=== PATIENT | female | born 1960 | race Caucasian/White ===

== ENCOUNTER 2017-04-08 15:09 | Emergency (ER) | payer OTHER ==
[2017-04-08 15:19] VITALS: BP 139/62; PULSE 98; RESP 20; TEMP 97.8
--- NOTE | 2017-04-08 15:35 | ED ---
General Adult HPI - General Chief complaint: Urogenital Stated complaint: UTI Time Seen by Provider: 04/08/17 15:28 Source: patient Mode of arrival: ambulatory Limitations: no limitations - History of Present Illness Initial comments: 57 year-old female patient presents to emergency department today for evaluation of lower abdominal pressure, frequency of urination, and constant urge to urinate. Patient states the symptoms started this morning. Patient denies any dysuria, but states she did have some hematuria once while using the restroom. States she noticed some pink blood on the toilet paper when she wiped. Patient denies any fever, chills, nausea, vomiting, back pain, abdominal pain, constipation, dizziness, or weakness. Patient states that she did have one episode of diarrhea this morning but has not had any further episodes today. Patient denies any history of frequent urinary tract infections. - Related Data Previous Rx's Medication Instructions Recorded Ciprofloxacin HCl [Cipro] 500 mg PO Q12HR #10 tablet 04/08/17 Allergies Allergy/AdvReac Type Severity Reaction Status Date / Time No Known Allergies Allergy Verified 04/08/17 15:18 Review of Systems ROS Statement: Those systems with pertinent positive or pertinent negative responses have been documented in the HPI. ROS Other: All systems not noted in ROS Statement are negative. Past Medical History Past Medical History: No Reported History History of Any Multi-Drug Resistant Organisms: None Reported Past Surgical History: Cholecystectomy, Uterine Ablation Additional Past Surgical History / Comment(s): bladder suspension Past Psychological History: No Psychological Hx Reported Smoking Status: Never smoker Past Alcohol Use History: Occasional Past Drug Use History: None Reported General Exam Limitations: no limitations General appearance: alert, in no apparent distress Head exam: Present: atraumatic, normocephalic, normal inspection Eye exam: Present: normal appearance, PERRL, EOMI. Absent: scleral icterus, conjunctival injection, periorbital swelling ENT exam: Present: normal exam, mucous membranes moist Neck exam: Present: normal inspection. Absent: tenderness, meningismus, lymphadenopathy Respiratory exam: Present: normal lung sounds bilaterally. Absent: respiratory distress, wheezes, rales, rhonchi, stridor Cardiovascular Exam: Present: regular rate, normal rhythm, normal heart sounds. Absent: systolic murmur, diastolic murmur, rubs, gallop, clicks GI/Abdominal exam: Present: soft, tenderness (Mild tenderness in the suprapubic region), normal bowel sounds. Absent: distended, guarding, rebound, rigid Extremities exam: Present: normal inspection, full ROM, normal capillary refill. Absent: tenderness, pedal edema, joint swelling, calf tenderness Back exam: Present: normal inspection. Absent: CVA tenderness (R), CVA tenderness (L) Neurological exam: Present: alert, oriented X3, CN II-XII intact Psychiatric exam: Present: normal affect, normal mood Skin exam: Present: warm, dry, intact, normal color. Absent: rash Course Vital Signs 04/08/17 15:16 Temperature 97.8 F Pulse Rate 98 Respiratory 20 Rate Blood Pressure 139/62 O2 Sat by Pulse 99 Oximetry Medical Decision Making - Medical Decision Making 57-year-old female patient presented to the emergency room today for evaluation of suprapubic pressure and frequency of urination. Urinalysis positive for urinary tract infection. She'll be discharged home with a 5 day course of ciprofloxacin. Patient will be instructed to return for any worsening symptoms including fever, back pain, nausea, or vomiting. Patient also instructed to return if she has any increase in her hematuria. Patient started to follow-up with her primary care physician for a repeat urinalysis once her antibiotic is completed. Urine was sent for culture will contact patient if antibiotic coverage is not appropriate. Patient started to return for any new, worsening, or concerning symptoms. Patient verbalizes understanding and agrees this plan. - Lab Data Lab Results 04/08/17 Range/Units 15:20 Urine Color Light Yellow Urine Appearance Cloudy H (Clear) Urine pH 6.0 (5.0-8.0) Ur Specific [place] 1.005 (1.001-1.035) Urine Protein Negative (Negative) Urine Glucose (UA) Negative (Negative) Urine Ketones Negative (Negative) Urine Blood Large H (Negative) Urine Nitrite Negative (Negative) Urine Bilirubin Negative (Negative) Urine Urobilinogen <2.0 (<2.0) mg/dL Ur Leukocyte Esterase Large H (Negative) Urine RBC 8 H (0-5) /hpf Urine WBC 147 H (0-5) /hpf Urine WBC Clumps Occasional H (None) /hpf Ur Squamous Epith Cells 1 (0-4) /hpf Urine Bacteria Rare H (None) /hpf Urine Mucus Rare H (None) /hpf Disposition Clinical Impression: Urinary tract infection Disposition: HOME SELF-CARE Condition: Good Instructions: Urinary Tract Infection in Women (ED) Additional Instructions: Drink lots of fluids. Use cranberry juice to assist with symptoms. Complete antibiotic prescription and full. Follow-up with primary care physician in one to 2 days for recheck. Return for any new, worsening, or concerning symptoms. Prescriptions: Ciprofloxacin HCl [Cipro] 500 mg PO Q12HR #10 tablet Referrals: Nonstaff,Physician [Primary Care Provider] - 1-2 days Time of Disposition: 16:00
[2017-04-08 15:52] LABS: Appearance,Urine Cloudy (Clear); Bacteria,Urine Rare /hpf; Bilirubin,Urine Negative (Negative); Glucose,Urine (UA) Negative (Negative); Ketones,Urine Negative (Negative); Leukocyte Esterase,Urine Large (Negative); Mucus,Urine Rare /hpf; Nitrite,Urine Negative (Negative); Particle Count 2348; Protein,Urine Negative (Negative); RBC,Urine 8 /hpf (0-5); Specific Gravity,Urine 1.005 (1.001-1.035); Squamous Epithelial Cell,Urine 1 /hpf (0-4); UA Billing (MACRO vs. MICRO) MICRO; Urobilinogen,Urine <2.0 mg/dL (<2.0); WBC,Urine 147 /hpf (0-5)
== END 2017-04-08 16:07 | disposition home or self-care (01) ==
LOC: EC 15:09
DX: N39.0 Urinary tract infection, site not specified (principal); Z90.49 Acquired absence of other specified parts of digestive tract
CPT/HCPCS: 81001; 87086; 99283